=== PATIENT | female | born 2000 | race African-American/Black ===

== ENCOUNTER 2021-02-26 12:06 | Emergency (ER) | payer OTHER | END 2021-02-26 12:57 | disposition home or self-care (01) | LOC: NAV ERS 12:06 | DX: U07.1 COVID-19 (principal) | CPT/HCPCS: 99283 ==

== ENCOUNTER 2021-03-15 14:52 | Outpatient (CLI) | payer BC, OTHER ==
[2021-03-15 15:19] LABS: Amphetamine Not Detected (NotDetected); Barbiturates Screen Not Detected (NotDetected); Benzodiazepine Screen Not Detected (NotDetected); Cocaine Metabolite Screen Not Detected (NotDetected); Medtox Control Line Valid? VALID (VALID); Methadone Not Detected (NotDetected); Methamphetamine Not Detected (NotDetected); Opiate Screen Not Detected (NotDetected); Oxycodone Screen Not Detected (NotDetected); Phencyclidine (PCP) Not Detected (NotDetected); THC/Cannabinoid Screen Not Detected (NotDetected); Tricyclic Screen Not Detected (NotDetected)
== END 2021-03-15 14:53 | disposition home or self-care (01) ==
LOC: NAV LABSP 14:52
PROVIDERS: ATTEND Nurse Practitioner Family
DX: Z02.83 Encounter for blood-alcohol and blood-drug test (principal)
CPT/HCPCS: 80306

== ENCOUNTER 2021-11-05 15:15 | Emergency (ER) | payer BC | END 2021-11-05 16:12 | disposition home or self-care (01) | LOC: NAV ERS 15:15 | DX: S62.622A Displaced fracture of middle phalanx of right middle finger, initial encounter for closed fracture (principal); X58.XXXA Exposure to other specified factors, initial encounter ==

== ENCOUNTER 2023-07-30 15:21 | Emergency (ER) | payer BC | END 2023-07-30 16:38 | disposition home or self-care (01) | LOC: NAV ERS 15:21 | DX: S93.505A Unspecified sprain of left lesser toe(s), initial encounter (principal); W22.8XXA Striking against or struck by other objects, initial encounter ==

== ENCOUNTER 2023-12-28 22:28 | Emergency (ER) | payer BC ==
[2023-12-28] MEDS ORDERED: Ondansetron ODT 4 MG TAB ONE (23:13)
[2023-12-28 23:24] LABS: Bilirubin Negative (Negative); Blood, Urine Trace (Negative); Glucose, Urine (Dipstick) Negative (Negative); Ketone, Urine Trace mg/dL (Negative); Leukocyte Negative (Negative); Nitrite Negative (Negative); Protein, Urine (Dipstick) Negative (Neg-Trace); Specific Gravity, Urine 1.025 (1.005-1.030)
[2023-12-28 23:27] LABS: Pregnancy Test - Urine (BHCG) Negative (Negative); Pregu Control Background? CLEAR/WHITE (CLR/WHITE); Pregu Control Bar Appear? YES (CONTROL BAR); Specific Gravity 1.025 (1.002-1.036)
[2023-12-28 23:30] LABS: Bacteria/HPF Rare-Few HPF (None Seen); CAUTI Indications for Culture Fever or rigors; Clarity Hazy (Clear); Mucous/LPF 1+ LPF (<2+)
[2023-12-28 23:31] LABS: Urine Culture Reflex No No
== END 2023-12-29 01:00 | disposition home or self-care (01) ==
LOC: NAV ERS 22:28
DX: R10.9 Unspecified abdominal pain (principal); R11.2 Nausea with vomiting, unspecified
CPT/HCPCS: 74176; 81001; 81025; Q0162